=== PATIENT | male | born 1945 | race Two or more races ===

== ENCOUNTER 2024-04-23 11:31 | Inpatient (IN) | payer OTHER ==
[~2024-04-23] VITALS: Ht 180.3 cm; Wt 90.5 kg
--- NOTE | 2024-04-23 11:56 | ED.PDOC ---
HPI Comments 78-year-old male with PMHx HTN brought in by EMS presents with a chief complaint of laceration and dizziness. Patient reported to EMS that he had a "vertigo like" dizziness while in the kitchen at home and had a fall to the ground, hitting his head on the floor. Patient denies losing consciousness. Patient has roughly 1.5 inch laceration to the lateral portion of his left forehead. Patient also has pain and a skin laceration to his left arm. Patient denies any blood thinner usage. Blood sugar was 160. Patient denied any pain meds from EMS. Chief Complaint: Laceration Time Seen by MD: 11:46 Reviewed Notes: Medications, Allergies Allergies: Coded Allergies: NO KNOWN ALLERGIES (Unverified , 04/23/24) Information Source: Patient, Emergency Med Personnel Mode of Arrival: EMS Severity: Moderate Severity of Laceration: Controlled Bleeding Complexity: Intermediate Timing: Minutes Prehospital treatment: Treatment (LACERATION CLEANED AND WRAPPED) Laceration Location: Arm (LEFT ARM), Forehead Mechanism: Fall Last Tetanus: Unknown Laceration Length (cm): 1 Skin Type: Linear Depth of Injury: Skin Past Medical History PAST MEDICAL HISTORY: HTN Surgical History: Denies all surgeries Family History Family History: Reviewed,noncontributory to illness Social History Smoker: Non-Smoker Alcohol: Denies ETOH Use Drugs: Denies Drug Use Lives In: Home Constitutional: denies: chills, diaphoresis, fatigue, fever, malaise, sweats, weakness, others EENTM: denies: blurred vision, double vision, ear bleeding, ear discharge, ear drainage, ear pain, ear ringing, eye pain, eye redness, hearing loss, mouth pain, mouth swelling, nasal discharge, nose bleeding, nose congestion, nose pain, photophobia, tearing, throat pain, throat swelling, voice changes, others Respiratory: denies: cough, hemoptysis, orthopnea, SOB at rest, shortness of breath, SOB with excertion, stridor, wheezing, others Cardiovascular: denies: chest pain, dizzy spells, diaphoresis, Dyspnea on exertion, edema, irregular heart beat, left arm pain, lightheadedness, palpitations, PND, syncope, others Gastrointestinal: denies: abdomen distended, abdominal pain, blood streaked bowels, constipated, diarrhea, dysphagia, difficulty swallowing, hematemesis, melena, nausea, poor appetite, poor fluid intake, rectal bleeding, rectal pain, vomiting, others Genitourinary: denies: burning, dysuria, flank pain, frequency, hematuria, incontinence, penile discharge, penile sore, pain, testicle pain, testicle swelling, urgency, others Neurological: reports: dizziness; denies: fainting, headache, left sided numbness, left sided weakness, numbness, paresthesia, pre-existing deficit, right sided numbness, right sided weakness, seizure, speech problems, tingling, tremors, weakness, others Musculoskeletal: denies: back pain, gout, joint pain, joint swelling, muscle pain, muscle stiffness, neck pain, others Integumetry: reports: laceration (LEFT ARM AND FOREHEAD); denies: bruises, change in color, change in hair/nails, dryness, lesions, lumps, rash, wounds, others Allergic/Immunocompromised: denies: Difficulty Healing, Frequent Infections, Hives, Itching, others Hematologic/Lymphatic: denies: anemia, blood clots, easy bleeding, easy bru ising, swollen glands, others Endocrine: denies: excessive hunger, excessive sweating, excessive thirst, e xcessive urination, flushing, intolerance to cold, intolerance to heat, unexplained weight gain, unexplained weight loss, others Psychiatric: denies: anxiety, bipolar disorder, depression, hopeless, panic disorder, schizophrenia, sleepless, suicidal, others All Other Systems: Reviewed and Negative Physical Exam General Appearance: Moderate Distress, Normal HEENT: Normal ENT Inspection, Pharynx Normal, TMs Normal Neck: Full Range of Motion, Non-Tender, Normal, Normal Inspection Respiratory: Chest Non-Tender, Lungs Clear, No Accessory Muscle Use, No Respiratory Distress, Normal Breath Sounds Cardiovascular: Irregular, No Edema, No JVD, No Murmur, No Gallop, Normal Peripheral Pulses Breast Exam: Deferred Gastrointestinal: No Organomegaly, Non Tender, No Pulsatile Mass, Normal Bowel Sounds, Soft Genitalia: Deferred Pelvic: Deferred Rectal: Deferred Extremities: No calf tenderness, Normal capillary refill, Normal range of motion, Non-tender, No pedal edema, Tender (Left forearm) Musculoskeletal : Apperance: Normal Neurologic: Alert, 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 Was a procedure done?: Yes Sedation Sedation?: No Laceration Repair : Location Forehead Length 3 cm Anesthetic: Lidocaine Laceration Repair Prep: Saline, Betadine Laceration Repair Wound Comple: epidermis/dermis repair Laceration Repair: Number of sutures (Seven), Skin Differential diagnosis Generic Laceration: Fracture, Tendon Injury, Laceration X-Ray, Labs, Meds, VS Vital Signs Date Time Temp Pulse Resp B/P (MAP) Pulse Ox O2 Delivery O2 Flow Rate FiO2 04/23/24 11:54 78 04/23/24 11:41 98.7 91 18 165/94 (117) 96 Current Medications Medications (Trade) Dose Ordered Sig/Vinny Route Start Time Stop Time Status Last Admin Diphtheria/ Tetanus/Acell Pertussis (Boostrix T-Dap) 0.5 ml ONCE ONCE IM 04/23/24 12:00 04/23/24 12:01 DC 04/23/24 12:02 Patient alert. Complaining of left wrist pain. Has a laceration on the forehead. Blood pressure elevated pain EKG reviewed does show atrial fibrillation. History of hypertension diabetes. Difficult to get a good history from the patient. Unknown whether he is taking blood thinner. Was given tetanus. Abdomen is soft nontender. Explained to the patient. Continue cardiac monitoring. Time of 1ST Reevaluation: 12:16 Reevaluation 1ST: Unchanged Patient Education/Counseling: Diagnosis, Treatment, Prognosis Family Education/Counseling: Diagnosis, Treatment, Prognosis Departure 1 Departure Time of Disposition: 12:36 Impression: Primary Impression: Head injury Qualified Codes: S09.90XA - Unspecified injury of head, initial encounter Additional Impressions: Radius fracture Qualified Codes: S52.502A - Unspecified fracture of the lower end of left radius, initial encounter for closed fracture Ulnar fracture Qualified Codes: S52.602A - Unspecified fracture of lower end of left ulna, initial encounter for closed fracture Laceration Disposition: ADMITTED INPATIENT Admit to: Med Surg Condition: Guarded Critical Care Note Critical Care Time?: No Stability Stability form required: No Heart Score Heart Score: Heart Score Response (Comments) Value History Slightly Suspicious 0 EKG Normal 0 Age >65 2 Risk Factors >3 or Hx ASHD 2 Troponin Normal limit 0 Total 4 I personally scribed for ROBERT CERDA MD ([email or web address]) on 04/23/24 at 11:56. Electronically submitted by Thaddeus Corona ([email or web address]). ROBERT CEDRA MD Apr 23, 2024 11:56
[2024-04-23] MEDS: TETANUS-DIPTH-ACEL PERTUSSIS 0.5ML SYR Tdap IM ONE (12:02)
--- NOTE | 2024-04-23 12:48 | DVH ---
CT HEAD WITHOUT CONTRAST INDICATION: fall EXAM DATE: 04/23/2024 12:26 PM COMPARISON: None RADIATION DOSE: CTDIvol: 68 mGy, DLP: 1338 mGy*cm PROCEDURE: CT scans of the head were obtained from the vertex to the skull base. Sagittal and coronal reconstructions were provided. All CT scans at this medical facility are performed using dose modulation techniques as appropriate t o a performed exam including the following: Automated exposure control was utilized; adjustment of th e MA and/or KV according to patient size; and use of iterative reconstruction technique. FINDINGS: There is sulcal and ventricular prominence. The brainshows normal morphology and hartley-whit e matter differentiation, without intracranial hemorrhage, extra-axial fluid collection, mass effect or acute large vessel infarct. The ventricles are normal in size. The basal cisterns are patent. The skull and visible facial bones are intact. The paranasal sinuses, mastoid air cells and middle ear ca vities are well-aerated. There is a left frontal scalp hematoma. IMPRESSION: Left frontal scalp hematoma. No acute intracranial abnormality.
--- NOTE | 2024-04-23 12:49 | DVH ---
AP portable chest HISTORY: fall Comparison: None FINDINGS: Height size slightly enlarged. Atelectasis left base. No infiltrates or effusions. No obvio us fracture IMPRESSION: 1. No acute cardiopulmonary pathology
--- NOTE | 2024-04-23 12:51 | DVH ---
EXAM: XY L FOREARM XRAY HISTORY: fall COMPARISON: None TECHNIQUE: AP and lateral views of the left forearm were performed. FINDINGS/IMPRESSION: Acute comminuted distal radius fracture. Acute ulnar styloid fracture. Vascular calcifications note d.
--- NOTE | 2024-04-23 12:55 | DVH ---
INDICATION: fall COMPARISON: None TECHNIQUE: 3 views of the cervical spine were obtained. FINDINGS: The cervical vertebral alignment is normal. The predental space is normal. Multilevel degenerative changes most severe at C3-C4 through C6-C7 causing moderate neural foraminal spinal canal stenosis No acute fracture, vertebral compression deformity or aggressive osseous lesions. The imaged lung apices are unremarkable. IMPRESSION: No acute fracture. 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
[2024-04-23 14:19] VITALS: PULSE 88; RESP 16; O2SAT 97
[2024-04-23 15:02] LABS: Anion Gap 10 (5-15); Basophils # (auto) 0 10 ^3/uL (0-0.2); Basophils % (auto) 0.2 % (0.0-2.0); Carbon Dioxide 27 mmol/L (20-31); Chloride 102 mmol/L (98-107); Eosinophils # (auto) 0 10 ^3/uL (0-0.8); Eosinophils % (auto) 0.2 % (0.0-7.0); Hematocrit 45.5 % (41.0-53.0); Hemoglobin 15.1 g/dL (13.5-17.5); Lymphocytes # (auto) 1.1 10 ^3/uL (0.4-5.4); Lymphocytes % (auto) 8.1 % (10.0-50.0); Mean Corpuscular Hemoglobin 29.4 pg (28.0-32.0); Mean Corpuscular Hgb Conc. 33.2 g/dL (32.0-36.0); Mean Corpuscular Volume 88.5 fL (80.0-100.0); Monocytes # (auto) 0.7 10 ^3/uL (0-1.3); Neutrophils # (auto) 11.4 10 ^3/uL (1.6-8.6); Neutrophils % (auto) 86.5 % (37.0-80.0); Nucleated Red Blood Cells % 0.2 %; Platelet Count (auto) 274 10^3/uL (140-450); Potassium 4.1 mmol/L (3.5-5.1); Red Blood Cells 5.14 10^6/uL (4.5-5.90); Red Cell Distribution Width 14.5 % (11.8-14.3); Sodium 139 mmol/L (136-145); White Blood Cell 13.1 10^3/uL (4.4-10.8)
[2024-04-23 15:07] LABS: Blood Urea Nitrogen 15 mg/dL (9-23)
[2024-04-23 15:19] LABS: Calcium 10.6 mg/dL (8.7-10.4); Glucose 142 mg/dL (74-106)
[2024-04-23] MEDS ORDERED: DOCUSATE SOD 100 MG CAP PO PRN (16:00)
[2024-04-23] MEDS ORDERED: ACETAMINOPHEN 325 MG TAB PO PRN (16:00)
[2024-04-23] MEDS: SODIUM CHLORIDE 0.9% 1,000 ML IV SCH (16:59)
[2024-04-23] MEDS: HYDROcodone-ACET 5/325MG TAB PO PRN (17:00)
[2024-04-23] MEDS: ONDANSETRON HCL 4 MG/2 ML VIAL IV PRN (17:00)
[2024-04-23] MEDS: cefTRIAXone 1GM/50ML D5W 50 ML IV ONE (17:00)
--- NOTE | 2024-04-23 17:37 | DVH ---
Report Patient Name: JENNIE ALMAZAN Patient : 1945 Patient Gender: Male Patient Class: Emergency Patient Location: [facility] Reading Location: [facility] Signed Date: 04/23/2024 Ord. Doc: ROBERT CERDA DOS: 04/23/2024 Status: Final Procedure: XY L WRIST 2 VIEW XRAY CLINICAL INDICATION: SURGERY TECHNIQUE: 3-view XY L WRIST 2 VIEW XRAY Comparison: None FINDINGS/IMPRESSION: : Comminuted distal radial fracture. Ulnar styloid process fracture Marked vascular calcification Carpal bones intact IMPRESSION: 1. Fractures ACT INSTRUCTOR MTDD
--- NOTE | 2024-04-23 18:32 | ECG ---
[facility] Test Date: 2024-04-23 Test Time: 11:54:09 Pat Name: JENNIE ALMAZAN Department: ER Room: 0247T Gender: M Family Medicine Physician Assistant: BENAJ : 1945 Requested By: ROBERT CERDA Order Number: [id number] [place] MD: Mohsen Veloz Measurements Intervals [place] Rate: 78 P: 0 VA: 0 QRS: -26 QRSD: 111 T: 42 QT: 363 QTc: 414 Interpretive Statements Atrial fibrillation with controlled ventricular response Borderline left axis deviation Baseline wander in lead(s) V1,V4,V5 Electronically Signed On 04-26-2024 21:49:49 PST by Mohsen Veloz Please click the below link to view image of tracing.
--- NOTE | 2024-04-23 19:04 | DVHINCON2 ---
Date of service: Apr 23, 2024 History of Present Illness 78-year-old male presents to emergency room after a fall. Patient was seen by emergency room provider x-ray was completed distal radius fracture was noted orthopedics was consulted. On my interview today patient denies any loss of consciousness other joint pain no hip pain back pain knee pain shoulder pain or other concerns reported. Patient reports left distal radius/left wrist pain. Denies any numbness tingling. Notes some superficial laceration on the dorsal aspect of the hand. No numbness tingling weakness in the affected extremity reported by patient denies any prior injuries to the wrist. Patient reports pain 7 to 8/10 at this time. Allergies: Coded Allergies: NO KNOWN ALLERGIES (Unverified , 04/23/24) Current Medications Current Medications Medications (Trade) Dose Ordered Sig/Vinny Route PRN Reason Start Time Stop Time Status Last Admin Ceftriaxone Sodium 50 ml @ 100 mls/hr DAILY@09 IV 04/24/24 09:00 Losartan Potassium (Cozaar Tablet) 50 mg DAILY PO 04/24/24 10:00 Atorvastatin Calcium (Lipitor) 20 mg HS PO 04/23/24 22:00 Levothyroxine Sodium (Synthroid Tablet) 50 mcg QAM@0600 PO 04/24/24 06:00 Hydralazine HCl (Apresoline Injection) 10 mg Q6HP PRN IV SBP>150 04/23/24 16:00 Sodium Chloride 1,000 ml @ 60 mls/hr [id number] IV 04/23/24 16:00 04/23/24 16:59 Acetaminophen/ Hydrocodone Bitart ([place] 5/325MG Tab) 1 tab Q4HP PRN PO MODERATE PAIN (4-6 PAIN SCALE) 04/23/24 16:00 04/23/24 17:00 Ondansetron HCl (Zofran) 4 mg Q4HP PRN IV NAUSEA / VOMITING 04/23/24 16:00 04/23/24 17:00 Docusate Sodium (Colace Capsule) 100 mg BIDPRN PRN PO FOR CONSTIPATION 04/23/24 16:00 Enoxaparin Sodium (Lovenox) 40 mg DAILY SC 04/24/24 10:00 Acetaminophen (Tylenol Tablet) 650 mg Q6HP PRN PO PAIN SCALE 1-3 OR TEMP>100.4 04/23/24 16:00 Review of Systems Constitutional:No fever chills or malaise neurological: No numbness tingling or weakness musculoskeletal: Left wrist pain swelling decreased range of motion Skin: Superficial laceration on the dorsal aspect of the hand no sign of infection Vital Signs Vital Signs Date Time Temp Pulse Resp B/P (MAP) Pulse Ox O2 Delivery O2 Flow Rate FiO2 04/23/24 18:43 98.2 87 18 118/69 (85) 94 98.2 04/23/24 14:19 Room Air* 0 21 Physical Exam Alert oriented x3, no acute distress Left wrist exam Inspection: Mild swelling superficial laceration over the dorsal aspect of the hand, no sign of erythema active bleed or gross deformity. Palpation: Tenderness over distal radius and ulnar styloid, no crepitus on exam Range of motion: Restricted secondary to pain swelling Neurovascular: Motor intact to gross flexion/extension of all the fingers and wrist Sensation: Grossly intact to light touch in radial medial and ulnar nerve distribution Circulation: Cap refill less than 2 seconds Compartment status: Soft compartment X-ray Left wrist intra-articular mildly comminuted distal radius fracture, ulnar styloid fracture Labs/Diagnostic Data Labs Test 04/23/24 14:19 Range/Units White Blood Count 13.1 H 4.4-10.8 10^3/uL Red Blood Count 5.14 4.5-5.90 10^6/uL Hemoglobin 15.1 13.5-17.5 g/dL Hematocrit 45.5 41.0-53.0 % Mean Corpuscular Volume 88.5 80.0-100.0 fL Mean Corpuscular Hemoglobin 29.4 28.0-32.0 pg Mean Corpuscular Hemoglobin Concent 33.2 32.0-36.0 g/dL Red Cell Distribution Width 14.5 H 11.8-14.3 % Platelet Count 274 140-450 10^3/uL Mean Platelet Volume 7.1 6.9-10.8 fL Neutrophils (%) (Auto) 86.5 H 37.0-80.0 % Lymphocytes (%) (Auto) 8.1 L 10.0-50.0 % Monocytes (%) (Auto) 5.0 0.0-12.0 % Eosinophils (%) (Auto) 0.2 0.0-7.0 % Basophils (%) (Auto) 0.2 0.0-2.0 % Neutrophils # (Auto) 11.4 H 1.6-8.6 10 ^3/uL Lymphocytes # (Auto) 1.1 0.4-5.4 10 ^3/uL Monocytes # (Auto) 0.7 0-1.3 10 ^3/uL Eosinophils # (Auto) 0 0-0.8 10 ^3/uL Basophils # (Auto) 0 0-0.2 10 ^3/uL Nucleated Red Blood Cells 0.2 % Sodium Level 139 136-145 mmol/L Potassium Level 4.1 3.5-5.1 mmol/L Chloride Level 102 98-107 mmol/L Carbon Dioxide Level 27 20-31 mmol/L Anion Gap 10 5-15 Blood Urea Nitrogen 15 9-23 mg/dL Creatinine 1.00 0.700-1.30 mg/dL Glomerular Filtration Rate Calc 78 >90 mL/min BUN/Creatinine Ratio 15.0 10.0-20.0 Serum Glucose 142 H 74-106 mg/dL Calcium Level 10.6 H 8.7-10.4 mg/dL Troponin I High Sensitivity 119 *H </=54 ng/L Assessment Distal radius fracture, left Plan/Recommendation Plan: Immobilization sugar-tong splint for initial stabilization completed in ER today, patient placed in a sling, ER and splint precautions discussed in detail with patient Wound care: Cleaned and dressed the superficial laceration, patient advised on wound care Follow-up Patient to follow up with orthopedic in next 1-2 weeks or earlier if needed for repeat x-ray followed by possible transition to cast if all swelling has resolved and no changes in x-rays noted If the fracture does not maintain acceptable alignment the case will be discussed with a surgeon for further recommendation ER return precautions for any infection lag sign and symptom compartment syndrome worsening of pain swelling splint complication discussed in detail with patient Plan discussed with: Patient, Other (Emergency room provider team care of this patient was also updated on above plan) JESUS FAULKNER [facility] Apr 23, 2024 19:04
--- NOTE | 2024-04-23 19:59 | DVHHP2 ---
History of Present Illness Reason for Visit: Syncope and collapse History of Present Illness The patient is a 78-year-old male with past medical history of hypertension, hypothyroidism, and hyperlipidemia presented to [facility] ED for evaluation of syncopal episode. Patient reports symptoms progressively get worse with dizzy spell, vertigo sensation, had a fall hitting his head on the floor with sustained forehead laceration. Patient was seen and evaluated in the ED, laboratory data shows WBC 13.1, platelets 274, sodium 139, potassium 4.1, BUN 15, creatinine 1.00, GFR 78, glucose 142, blood pressure 175/103 trending down to 126/70, pulse 88, temperature 98.0 F, O2 saturation 97% on room air. Imaging reports revealing acute comminuted distal radius fracture, acute ulna fracture, left frontal scalp hematoma. Patient was started on IV antibiotic regimen Rocephin, please see medication orders section in the computer. On my assessment, patient denied chest pain, no headache, no dizziness, no diaphoresis, no shortness a breath, no nausea, no vomiting, no fever, no chills. Patient was admitted for further evaluation and medical management. Past Medical History HTN, hypothyroidism, HLD Past Surgical History Denies all surgeries Family History Reviewed, noncontributory to the management of this case. Past Social History The patient lives at home, denies smoking, alcohol or illicit drugs abuse. Review of Systems Constitutional: Yes: Weakness; No: Fever, Chills, Sweats, Malaise, Other Eyes: No: Pain, Vision change, Conjunctivae inflammation, Eyelid inflammation, Other, Redness ENT: No: Ear pain, Ear discharge, Nose pain, Nose discharge, Nose congestion, Mouth pain, Mouth swelling, Throat pain, Throat swelling, Other Respiratory: No: Cough, Dry, Shortness of breath, SOB with excertion, Wheezing, Hemoptysis, Pleuritic Pain, Sputum, Wheezing, Other Cardiovascular: Other (Syncope); No: Chest Pain, Palpitations, Orthopnea, Paroxysmal Noc. Dyspnea, Edema, Lt Headedness Gastrointestinal: No: Nausea, Vomiting, Abdominal Pain, Diarrhea, Constipation, Melena, Hematochezia, Other Genitourinary: No Dysuria, No Frequency, No Incontinence, No Hematuria, No Retention, No Other Musculoskeletal: No: other, neck pain, shoulder pain, arm pain, back pain, hand pain, leg pain, foot pain Skin: No: Rash, Lesions, Jaundice, Bruising, Other Neurological: Other (Dizziness); No: Weakness, Numbness, Incoordination, Change in speech, Confusion, Seizures Allergies: Coded Allergies: NO KNOWN ALLERGIES (Unverified , 04/23/24) Medications Current Medications Medications Dose Ordered Sig/Vinny Route Start Time Stop Time Status Last Admin Dose Admin Ceftriaxone Sodium 50 ml @ 100 mls/hr DAILY@09 IV 04/24/24 09:00 Losartan Potassium 50 mg DAILY PO 04/24/24 10:00 Atorvastatin Calcium 20 mg HS PO 04/23/24 22:00 Levothyroxine Sodium 50 mcg QAM@0600 PO 04/24/24 06:00 Hydralazine HCl 10 mg Q6HP PRN IV 04/23/24 16:00 Sodium Chloride 1,000 ml @ 60 mls/hr [id number] IV 04/23/24 16:00 04/23/24 16:59 60 MLS/HR Acetaminophen/ Hydrocodone Bitart 1 tab Q4HP PRN PO 04/23/24 16:00 04/23/24 17:00 1 TAB Ondansetron HCl 4 mg Q4HP PRN IV 04/23/24 16:00 04/23/24 17:00 4 MG Docusate Sodium 100 mg BIDPRN PRN PO 04/23/24 16:00 Enoxaparin Sodium 40 mg DAILY SC 04/24/24 10:00 Acetaminophen 650 mg Q6HP PRN PO 04/23/24 16:00 Exam Vital Signs Vital Signs Date Time Temp Pulse Resp B/P (MAP) Pulse Ox O2 Delivery O2 Flow Rate FiO2 04/23/24 18:43 98.2 87 18 118/69 (85) 94 98.2 04/23/24 14:19 Room Air* 0 21 General Appearance: Alert, Oriented X3, Cooperative, No acute distress HEENT: Atraumatic, PERRLA, EOMI, Mucous membr. moist/pink Respiratory: Clear to auscultation, Normal air movement Cardiovascular: Regular rate, Normal S1, Normal S2, No murmurs Abdominal: Normal bowel sounds, Soft, No tenderness, No hepatospenomegaly, No masses Extremities: No clubbing, No cyanosis, No edema, Normal pulses, No tenderness/swelling Skin: No rashes, No breakdown, No significant lesion Neuro: Normal speech, Normal tone, Sensation intact, Cranial nerves 3-12 NL, Reflexes 2+, Other (Generalized weakness) Psych/Mental Status: Mental status NL, Mood NL Labs/Xrays Labs Test 04/23/24 18:50 04/23/24 14:19 Range/Units White Blood Count 13.1 H 4.4-10.8 10^3/uL Red Blood Count 5.14 4.5-5.90 10^6/uL Hemoglobin 15.1 13.5-17.5 g/dL Hematocrit 45.5 41.0-53.0 % Mean Corpuscular Volume 88.5 80.0-100.0 fL Mean Corpuscular Hemoglobin 29.4 28.0-32.0 pg Mean Corpuscular Hemoglobin Concent 33.2 32.0-36.0 g/dL Red Cell Distribution Width 14.5 H 11.8-14.3 % Platelet Count 274 140-450 10^3/uL Mean Platelet Volume 7.1 6.9-10.8 fL Neutrophils (%) (Auto) 86.5 H 37.0-80.0 % Lymphocytes (%) (Auto) 8.1 L 10.0-50.0 % Monocytes (%) (Auto) 5.0 0.0-12.0 % Eosinophils (%) (Auto) 0.2 0.0-7.0 % Basophils (%) (Auto) 0.2 0.0-2.0 % Neutrophils # (Auto) 11.4 H 1.6-8.6 10 ^3/uL Lymphocytes # (Auto) 1.1 0.4-5.4 10 ^3/uL Monocytes # (Auto) 0.7 0-1.3 10 ^3/uL Eosinophils # (Auto) 0 0-0.8 10 ^3/uL Basophils # (Auto) 0 0-0.2 10 ^3/uL Nucleated Red Blood Cells 0.2 % Sodium Level 139 136-145 mmol/L Potassium Level 4.1 3.5-5.1 mmol/L Chloride Level 102 98-107 mmol/L Carbon Dioxide Level 27 20-31 mmol/L Anion Gap 10 5-15 Blood Urea Nitrogen 15 9-23 mg/dL Creatinine 1.00 0.700-1.30 mg/dL Glomerular Filtration Rate Calc 78 >90 mL/min BUN/Creatinine Ratio 15.0 10.0-20.0 Serum Glucose 142 H 74-106 mg/dL Calcium Level 10.6 H 8.7-10.4 mg/dL PATIENT: JENNIE ALMAZAN ACCT: [id number] UNIT: [id number] : 1945 LOC: ER ROOM / BED: / AGE / SEX: 78 / M ADM STATUS: REG ER SERVICE 1153 ORDERING PHYSICIAN: ROBERT CERDA MD PROCEDURE(s): CERV2 - CERVICAL SPINE 3V REASON: fall ORDER NUMBER(s): [id number], ACCESSION NUMBER(s): [id number] INDICATION: fall COMPARISON: None TECHNIQUE: 3 views of the cervical spine were obtained. FINDINGS: The cervical vertebral alignment is normal. The predental space is normal. Multilevel degenerative changes most severe at C3-C4 through C6-C7 causing moderate neural foraminal spinal canal stenosis No acute fracture, vertebral compression deformity or aggressive osseous lesions. The imaged lung apices are unremarkable. IMPRESSION: No acute fracture. 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 ORDERING PHYSICIAN: ROBERT CERDA MD PROCEDURE(s): LFOR - L FOREARM XRAY REASON: fall ORDER NUMBER(s): [id number], ACCESSION NUMBER(s): [id number] EXAM: XY L FOREARM XRAY HISTORY: fall COMPARISON: None TECHNIQUE: AP and lateral views of the left forearm were performed. FINDINGS/IMPRESSION: Acute comminuted distal radius fracture. Acute ulnar styloid fracture. Vascular calcifications noted. ORDERING PHYSICIAN: ROBERT CERDA MD PROCEDURE(s): HWOCT - HEAD WITHOUT CONTRAST REASON: fall ORDER NUMBER(s): [id number], ACCESSION NUMBER(s): [id number] CT HEAD WITHOUT CONTRAST INDICATION: fall EXAM DATE: 04/23/2024 12:26 PM COMPARISON: None RADIATION DOSE: CTDIvol: 68 mGy, DLP: 1338 mGy*cm PROCEDURE: CT scans of the head were obtained from the vertex to the skull base. Sagittal and coronal reconstructions were provided. All CT scans at this medical facility are performed using dose modulation techniques as appropriate to a performed exam including the following: Automated exposure control was utilized; adjustment of the MA and/or KV according to patient size; and use of iterative reconstruction technique. FINDINGS: There is sulcal and ventricular prominence. The brainshows normal morphology and hartley-white matter differentiation, without intracranial hemorrhage, extra-axial fluid collection, mass effect or acute large vessel infarct. The ventricles are normal in size. The basal cisterns are patent. The skull and visible facial bones are intact. The paranasal sinuses, mastoid air cells and middle ear cavities are well-aerated. There is a left frontal scalp hematoma. IMPRESSION: Left frontal scalp hematoma. No acute intracranial abnormality. ORDERING PHYSICIAN: ROBERT CERDA MD PROCEDURE(s): CXRP - CHEST PORTABLE REASON: fall ORDER NUMBER(s): [id number], ACCESSION NUMBER(s): [id number] AP portable chest HISTORY: fall Comparison: None FINDINGS: Height size slightly enlarged. Atelectasis left base. No infiltrates or effusions. No obvious fracture IMPRESSION: 1. No acute cardiopulmonary pathology ORDERING PHYSICIAN: ROBERT CERDA MD PROCEDURE(s): LWRI2 - L WRIST 2 VIEW XRAY REASON: SURGERY ORDER NUMBER(s): [id number], ACCESSION NUMBER(s): [id number] Report Patient Name: JENNIE ALMAZAN Patient : 1945 Patient Gender: Male Patient Class: Emergency Patient Location: [facility] Reading Location: [facility] Signed Date: 04/23/2024 Ord. Doc: ROBERT CERDA DOS: 04/23/2024 Status: Final Procedure: XY L WRIST 2 VIEW XRAY CLINICAL INDICATION: SURGERY TECHNIQUE: 3-view XY L WRIST 2 VIEW XRAY Comparison: None FINDINGS/IMPRESSION: : Comminuted distal radial fracture. Ulnar styloid process fracture Marked vascular calcification Carpal bones intact IMPRESSION: 1. Fractures Assessment/Plan Assessment/Plan Syncope and collapse Fall with injury Unspecified injury of head, initial encounter Ulnar fracture Radius fracture Unspecified fracture of the lower end of left radius, initial encounter for closed fracture Forehead laceration Unspecified fracture of lower end of left ulna, initial encounter for closed fracture Leukocytosis, unspecified Plan 1. Admit to telemetry unit 2. Breathing treatment 3. Pain control management 4. IV antibiotic management 5. Management of fluids and electrolytes 6. Consultation for Cardiology/hospitalist/wound care 7. Diagnostic test head CT 8. DVT prophylaxis-on Lovenox 9. Repeat labs CBC, CMP in a.m. 10. Home medication reviewed and reconciled 11. Continue with current medical management 12. Treatment plan discussed with patient and RN. Patient verbalized understanding. Plan discussed with: Patient, Other (RN) My Orders Orders - ANA RAMOS DNP Procedure Category Date Status Time Ceftriaxone 1gm/50ml PHA 04/24/24 In Process D5w (Rocephin) 09:00 Losartan Tablet PHA 04/24/24 In Process (Cozaar Tablet) 10:00 Atorvastatin (Lipitor) PHA 04/23/24 In Process 22:00 Levothyroxine Tablet PHA 04/24/24 In Process (Synthroid Tablet) 06:00 Hydralazine Injection PHA 04/23/24 In Process (Apresoline Inject 16:00 Troponin-I Hs LAB 04/23/24 In Process 18:51 Troponin-I Hs LAB 04/23/24 Logged 22:50 Allergies ROSAURA 04/23/24 In Process 15:51 Code Status CODE 04/23/24 Transmitted 15:51 Sodium Chloride 0.9% PHA 04/23/24 In Process 16:00 Oxygen Per Hour RT 04/23/24 Transmitted 15:51 Hydrocodone-Acet PHA 04/23/24 In Process 5/325mg Tab ([place] 16:00 Ondansetron Hcl PHA 04/23/24 In Process (Zofran) 16:00 Docusate Sodium PHA 04/23/24 In Process Capsule (Colace 16:00 Enoxaparin Sodium PHA 04/24/24 In Process (Lovenox) 10:00 Fall Risk Precautions ROSA[facility]A 04/23/[address] 15:51 Complete Blood Count LAB 04/24/24 Verified 04:00 Comprehensive LAB 04/24/24 Verified Metabolic Panel 04:00 Cardiac DIET 04/23/24 Transmitted Diet-2gna,Lofat,Lochol Dinner Condition: Serious [facility]A 04/23/24 In Process 15:51 Acetaminophen Tablet PHA 04/23/24 In Process (Tylenol Tablet) 16:00 Sequential [facility]A 04/23/24 In Process Compression Device * Orthopedic Consult CONS 04/23/24 Transmitted 15:57 Admit ADMIT 04/23/24 Transmitted 19:[address] [facility] 04/23/24 Transmitted Sublingual (Ntrostat 20:00 Morphine Sulfate PHA 04/23/24 Transmitted Injection 20:00 Notify Of Changes [facility] 04/23/24 Transmitted From Base 19:57 [employer]ne[employer] For [facility] 04/23/24 Transmitted 24 Hours 19:57 Emergency Dysrhythmia [facility] 04/23/24 Transmitted Protocol 19:57 Rhythm Strips Once [facility] 04/23/24 Transmitted Every Shift 19:57 Oxygen By Nasal RT 04/23/24 Transmitted Cannula 19:57 * Cardiology Consult CONS 04/23/24 Transmitted 19:57 Problem List: (1) Syncope and collapse (2) Fall with injury (3) Ulnar fracture (4) Unspecified injury of head, initial encounter (5) Radius fracture (6) Unspecified fracture of the lower end of left radius, initial encounter for closed fracture (7) Forehead laceration (8) Leukocytosis, unspecified (9) Unspecified fracture of lower end of left ulna, initial encounter for closed fracture Date of Service: Apr 23, 2024 Billing Provider: ANA RAMOS DNP Common Visit Codes: 32379-[id number] INP/OBS CARE (HIGH) ANA RAMOS DNP Apr 23, 2024 19:59
[2024-04-23] MEDS ORDERED: NITROGLYCERIN 0.4 MG SL TAB SL PRN (20:00)
[2024-04-23] MEDS ORDERED: MORPHINE SULFATE INJ 2 MG/ml SYRG IV PRN (20:00)
[2024-04-23] MEDS: ATORVASTATIN 20 MG TAB PO SCH (23:37)
[2024-04-24] VITALS: PULSE 79; RESP 16; O2SAT 99
[2024-04-24] MEDS: LEVOTHYROXINE SODIUM 50 MCG TAB PO SCH (05:53)
[2024-04-24 06:48] LABS: Basophils # (auto) 0 10 ^3/uL (0-0.2); Basophils % (auto) 0.1 % (0.0-2.0); Eosinophils # (auto) 0 10 ^3/uL (0-0.8); Eosinophils % (auto) 0.1 % (0.0-7.0); Hematocrit 38.9 % (41.0-53.0); Lymphocytes # (auto) 1.9 10 ^3/uL (0.4-5.4); Lymphocytes % (auto) 15.4 % (10.0-50.0); Mean Corpuscular Hemoglobin 29.9 pg (28.0-32.0); Mean Corpuscular Hgb Conc. 33.4 g/dL (32.0-36.0); Mean Corpuscular Volume 89.4 fL (80.0-100.0); Monocytes # (auto) 1.4 10 ^3/uL (0-1.3); Monocytes % (auto) 11.6 % (0.0-12.0); Neutrophils % (auto) 72.8 % (37.0-80.0); Platelet Count (auto) 207 10^3/uL (140-450); Red Blood Cells 4.35 10^6/uL (4.5-5.90); Red Cell Distribution Width 14.4 % (11.8-14.3); White Blood Cell 12.3 10^3/uL (4.4-10.8)
[2024-04-24 07:04] LABS: Alanine Aminotransferase 36 U/L (7-40); Albumin 4.2 g/dL (3.2-4.8); Anion Gap 10 (5-15); Aspartate Aminotransferase 31 U/L (13-40); BUN/Creatinine Ratio 20.5 (10.0-20.0); Calcium 9.7 mg/dL (8.7-10.4); Carbon Dioxide 24 mmol/L (20-31); Chloride 105 mmol/L (98-107); Potassium 4.3 mmol/L (3.5-5.1); Sodium 139 mmol/L (136-145)
[2024-04-24 07:05] LABS: Bilirubin, Total 0.7 mg/dL (0.2-1.0); Total Protein 6.7 g/dL (5.7-8.2)
[2024-04-24 07:09] LABS: Alkaline Phosphatase 127 U/L (46-116); Blood Urea Nitrogen 23 mg/dL (9-23); Glucose 113 mg/dL (74-106)
[2024-04-24 07:54] VITALS: PULSE 77; RESP 18; O2SAT 96
[2024-04-24 09:17] LABS: Folate (Folic Acid) 23.31 ng/mL (>5.38); Free T4 (Free Thyroxine) 0.95 ng/dL (0.89-1.76)
--- NOTE | 2024-04-24 09:25 | DVHCONRES ---
Date Seen: Apr 24, 2024 Resident Creating Document: JIMMIE BRICENO RESIDENT Referring Physician CHANEL Tucker Reason for Consultation Syncope History of Present Illness This is a 78-year-old male who comes into the ED with chief complain of dizziness and fall. He has a past medical history relevant for hypertension, hyperlipidemia, hypothyroidism. Past surgical history of cholecystectomy. Denies any smoking, alcohol drinking or any illicit drug use. Patient stated that yesterday after mowing the lawn, he went into his house on was trying to grab an orange from the top of a shelf, while looking up he felt like the room was spinning, immediately he lost balance, tried to sit down however he fell and landed on his head, he tried reducing the impact by putting his hands. Patient stated that he did not lose consciousness, his fall was witnessed by his spouse, denies any feeling of chest pain, palpitations, shortness of breath, flushing, warmness, headaches, while this event occurred. He also stated that he has been experiencing this DC spells for the last four months, he was already seen by his PCP and he provided some medicine however it did not help. Patient stated that after the fall he started having significant pain on his arms on forehead. In the ED patient had to be suture in the forehead, x-rays revealed distal radius fracture, acute ulnar fracture, left frontal scalp hematoma, otherwise head CT was unremarkable for any intracranial bleeding. EKG and telemetry revealed atrial fibrillation, currently at a controlled rate. Chest x-ray was unremarkable. Vital signs show an elevated BP at 165/94, currently [place] [address], troponins were elevated at 119-77-105. Patient has received IV fluids, antibiotics, pain medications. We are consulted due to possible syncope, patient was admitted for further investigation and management. Allergies: Coded Allergies: NO KNOWN ALLERGIES (Unverified , 04/23/24) Current Medications Current Medications Medications (Trade) Dose Ordered Sig/Vinny Route PRN Reason Start Time Stop Time Status Last Admin Ceftriaxone Sodium 50 ml @ 100 mls/hr DAILY@09 IV 04/24/24 09:00 Losartan Potassium (Cozaar Tablet) 50 mg DAILY PO 04/24/24 10:00 Atorvastatin Calcium (Lipitor) 20 mg HS PO 04/23/24 22:00 04/23/24 23:37 Levothyroxine Sodium (Synthroid Tablet) 50 mcg QAM@0600 PO 04/24/24 06:00 04/24/24 05:53 Hydralazine HCl (Apresoline Injection) 10 mg Q6HP PRN IV SBP>150 04/23/24 16:00 Sodium Chloride 1,000 ml @ 60 mls/hr [id number] IV 04/23/24 16:00 04/24/24 08:45 Acetaminophen/ Hydrocodone Bitart ([place] 5/325MG Tab) 1 tab Q4HP PRN PO MODERATE PAIN (4-6 PAIN SCALE) 04/23/24 16:00 04/23/24 23:29 Ondansetron HCl (Zofran) 4 mg Q4HP PRN IV NAUSEA / VOMITING 04/23/24 16:00 04/23/24 17:00 Docusate Sodium (Colace Capsule) 100 mg BIDPRN PRN PO FOR CONSTIPATION 04/23/24 16:00 Enoxaparin Sodium (Lovenox) 40 mg DAILY SC 04/24/24 10:00 Acetaminophen (Tylenol Tablet) 650 mg Q6HP PRN PO PAIN SCALE 1-3 OR TEMP>100.4 04/23/24 16:00 Nitroglycerin (Ntrostat Sublingual) 0.4 mg Q5MINP PRN SL FOR CHEST PAIN 04/23/24 20:00 Morphine Sulfate 2 mg Q30M PRN IV FOR CHEST PAIN 04/23/24 20:00 Review of Systems Constitutional: Patient denies fevers, chills, sweats and weight changes. Eyes: Patient denies any visual symptoms. Ears, Nose, and Throat: No difficulties with hearing. No symptoms of rhinitis or sore throat. Cardiovascular: Patient denies chest pains, palpitations, orthopnea and paroxysmal nocturnal dyspnea. Respiratory: No dyspnea on exertion, no wheezing or cough. GI: No nausea, vomiting, diarrhea, constipation, abdominal pain, hematochezia or melena. : No urinary hesitancy or dribbling. No nocturia or urinary frequency. No abnormal urethral discharge. Musculoskeletal: Pain on arms Neurologic: No chronic headaches, no seizures. Patient denies numbness, tingling or weakness. States having dizziness Psychiatric: Patient denies problems with mood disturbance. No problems with anxiety. Endocrine: No excessive urination or excessive thirst. Dermatologic: Patient denies any rashes or skin changes. Vital Signs Vital Signs Date Time Temp Pulse Resp B/P (MAP) Pulse Ox O2 Delivery O2 Flow Rate FiO2 04/24/24 08:00 71 04/24/24 07:54 18 96 Room Air* 0 21 04/24/24 06:00 110/68 (82) 04/23/24 18:43 98.2 98.2 Physical Exam General: Awake, alert, comfortable appearing, in no acute distress. HEENT: Head is normocephalic, left frontal hematoma. Pupils are equal, round, and reactive to light. Extraocular muscles are intact. No nasal discharge. Signs of laceration on the face. Intraoral exam shows moist mucous membranes with no tonsillar enlargement or exudate. Neck: Supple with no cervical lymphadenopathy. Heart: Irregularly irregular, systolic murmur on aortic foci Lungs: Equal breath sounds bilaterally with no wheezing, rales, or rhonchi. There is no chest wall tenderness or instability. Abdomen: No external sign of injury. Bowel sounds are present. Abdomen is soft, nontender. No rebound, no guarding, no rigidity. There are no palpable masses. There is no flank pain on exam. Extremities: Strong peripheral pulses. There is no clubbing, no cyanosis, and no edema. Skin: No rash. Labs/Diagnostic Data Labs Test 04/24/24 05:54 Range/Units White Blood Count 12.3 H 4.4-10.8 10^3/uL Red Blood Count 4.35 L 4.5-5.90 10^6/uL Hemoglobin 13.0 L 13.5-17.5 g/dL Hematocrit 38.9 #L 41.0-53.0 % Mean Corpuscular Volume 89.4 80.0-100.0 fL Mean Corpuscular Hemoglobin 29.9 28.0-32.0 pg Mean Corpuscular Hemoglobin Concent 33.4 32.0-36.0 g/dL Red Cell Distribution Width 14.4 H 11.8-14.3 % Platelet Count 207 140-450 10^3/uL Mean Platelet Volume 7.2 6.9-10.8 fL Neutrophils (%) (Auto) 72.8 37.0-80.0 % Lymphocytes (%) (Auto) 15.4 10.0-50.0 % Monocytes (%) (Auto) 11.6 0.0-12.0 % Eosinophils (%) (Auto) 0.1 0.0-7.0 % Basophils (%) (Auto) 0.1 0.0-2.0 % Neutrophils # (Auto) 9.0 H 1.6-8.6 10 ^3/uL Lymphocytes # (Auto) 1.9 0.4-5.4 10 ^3/uL Monocytes # (Auto) 1.4 H 0-1.3 10 ^3/uL Eosinophils # (Auto) 0 0-0.8 10 ^3/uL Basophils # (Auto) 0 0-0.2 10 ^3/uL Nucleated Red Blood Cells 0.0 % Sodium Level 139 136-145 mmol/L Potassium Level 4.3 3.5-5.1 mmol/L Chloride Level 105 98-107 mmol/L Carbon Dioxide Level 24 20-31 mmol/L Anion Gap 10 5-15 Blood Urea Nitrogen 23 9-23 mg/dL Creatinine 1.12 0.700-1.30 mg/dL Glomerular Filtration Rate Calc 68 >90 mL/min BUN/Creatinine Ratio 20.5 H 10.0-20.0 Serum Glucose 113 H 74-106 mg/dL Calcium Level 9.7 8.7-10.4 mg/dL Total Bilirubin 0.7 0.2-1.0 mg/dL Aspartate Amino Transferase (AST) 31 13-40 U/L Alanine Aminotransferase (ALT) 36 7-40 U/L Alkaline Phosphatase 127 H 46-116 U/L B-Type Natriuretic Peptide 323.49 0-100 pg/mL Total Protein 6.7 5.7-8.2 g/dL Albumin 4.2 3.2-4.8 g/dL Assessment Pre-syncope, rule out cardiogenic, neurogenic origin, likely peripheral vertigo Atrial fibrillation, controlled rate Severe aortic stenosis NSTEMI likely type 2 due to above Carotid artery stenosis, moderate Hypertension Hypothyroidism Hyperlipidemia Radial fracture Ulnar fracture Left frontal hematoma Plan/Recommendation Ordered B12, folate, TSH, T4, orthostatic vitals, magnesium, lipid panel, repeat troponins, BNP, A1c, UA, UDS Ordered Carotid Doppler, echocardiogram Reviewed EKG, no ST-T wave changes, troponins are trending down [id number]: 3 points HAS-BLED: 1 point Begin anticoagulation with therapeutic Lovenox Continue antihypertensive, antilipidemic, levothyroxine We will continue monitoring patient's clinical status, possible left heart catheterization to be performed on Counseled on lifestyle modifications, medical compliance Case was discussed with Dr. Valentin pt seen with cv team agree with plan formulated together pt has severe , new onset afib ,and moderate carotid disease consider [facility] dione this admit rate control family agrees to plan Plan discussed with: Patient JIMMIE BRICENO RESIDENT Apr 24, 2024 09:25 YOUNG VALENTIN MD Apr 24, 2024 15:30
[2024-04-24 09:27] LABS: Magnesium 1.8 mg/dL (1.6-2.6)
[2024-04-24 09:36] LABS: INR 1.17 (0.9-1.15); Partial Thromboplastin Time 30.2 SEC (24.5-34.5); Prothrombin Time 12.2 sec (9.3-11.8)
[2024-04-24] MEDS ORDERED: ENOXAPARIN SOD 40 MG/0.4 ML SYRINGE SC SCH (10:00)
--- NOTE | 2024-04-24 10:06 | DVH ---
Carotid Duplex Date: 04/24/2024 08:57 AM Clinical History: syncope Comparison: None Technique: Duplex Doppler evaluation of the extracranial carotid and vertebral arteries including color Doppler and spectral/pulsed waveform analysis was performed. Findings: Velocities and ratios within normal limits. Left vertebral artery not seen. IMPRESSION: 50-69% stenosis bilaterally. Reference: Radiology 2003; 229:340-346
[2024-04-24] MEDS: cefTRIAXone 1GM/50ML D5W 50 ML IV SCH (11:12)
[2024-04-24] MEDS: ENOXAPARIN SOD 100 MG/1 ML SYRINGE SC SCH (11:12)
[2024-04-24] MEDS: LOSARTAN POTASSIUM 50 MG TAB PO SCH (11:13)
[2024-04-24] MEDS: MAGNESIUM SULFATE 1GM/100ML 100 ML IV ONE (12:04)
--- NOTE | 2024-04-24 12:50 | ECG ---
[facility] [place]: [place]24-04-24 Test Time: 04:42:43 Pat Name: JENNIE ALMAZAN Department: ED Room: 0247T Gender: M Management And Budget Analyst: ROLANDO : 1945 Requested By: ROBERT CERDA Order Number: [id number] Reading MD: Mohsen Veloz Measurements Intervals [place] Rate: 75 P: 0 [place]: 0 QRS: 114 QRSD: 99 T: 27 QT: 395 QTc: 442 Interpretive Statements Atrial fibrillation S1,S2,S3 pattern Borderline ST elevation, lateral leads Electronically Signed On 04-26-2024 22:04:52 PST by Mohsen Veloz Please click the below link to view image of tracing.
--- NOTE | 2024-04-24 15:01 | DVHPN2 ---
Subjective 78-year-old male with a history of hypertension, hypothyroidism, hyperlipidemia comes with chief complaint of syncope and dizziness Apparently he was working on his lawn outside the house then went inside because he became dizzy when he was looking up and then he fell landing on his head and left arm resulting in a cut to his scalp and fracture of his left distal radius and ulna He has been having these symptoms actually for about 5 or 6 months usually when he looks up or looks down Changes from previous H/P or p: Changes Eyes: No Pain, No Vision change, No Conjunctivae inflammation, No Eyelid inflammation, No Other, No Redness ENT: No Ear pain, No Ear discharge, No Nose pain, No Nose discharge, No Nose congestion, No Mouth pain, No Mouth swelling, No Throat pain, No Throat swelling, No Other Cardiovascular: No Chest Pain, No Palpitations, No Orthopnea, No Paroxysmal Noc. Dyspnea, No Edema, No Lt Headedness; Other (Syncope) Respiratory: No Cough, No Dry, No Shortness of breath, No SOB with excertion, No Wheezing, No Hemoptysis, No Pleuritic Pain, No Sputum, No Other Gastrointestinal: No Nausea, No Vomiting, No Abdominal Pain, No Diarrhea, No Constipation, No Melena, No Hematochezia, No Other Genitourinary: No Dysuria, No Frequency, No Incontinence, No Hematuria, No Retention, No Other Musculoskeletal: No other, No neck pain, No shoulder pain, No arm pain, No back pain, No hand pain, No leg pain, No foot pain Skin: No Rash, No Lesions, No Jaundice, No Bruising, No Other Objective Vitals Vital Signs Date Time Temp Pulse Resp B/P (MAP) Pulse Ox O2 Delivery O2 Flow Rate FiO2 04/24/24 14:00 75 20 135/76 (95) 04/24/24 10:00 92 04/24/24 08:00 97.6 97.6 04/24/24 07:54 Room Air* 0 21 Intake/Output Intake and Output 04/24/24 07:00 Intake Total 590 ml Balance 590 ml Intake IV Total 590 ml General Appearance: Alert, Oriented X3, Cooperative Lungs: Clear to auscultation, Normal air movement Cardiovascular: Other (Irregularity irregular, systolic murmur at the base) Abdomen: Normal bowel sounds, Soft, No tenderness Extremities: No edema Medications Current Medications Medications Dose Ordered Sig/Vinny Route Start Time Stop Time Status Last Admin Dose Admin Ceftriaxone Sodium 50 ml @ 100 mls/hr DAILY@09 IV 04/24/24 09:00 04/24/24 11:12 100 MLS/HR Losartan Potassium 50 mg DAILY PO 04/24/24 10:00 04/24/24 11:13 50 MG Atorvastatin Calcium 20 mg HS PO 04/23/24 22:00 04/23/24 23:37 20 MG Levothyroxine Sodium 50 mcg QAM@0600 PO 04/24/24 06:00 04/24/24 05:53 50 MCG Hydralazine HCl 10 mg Q6HP PRN IV 04/23/24 16:00 Acetaminophen/ Hydrocodone Bitart 1 tab Q4HP PRN PO 04/23/24 16:00 04/23/24 23:29 1 TAB Ondansetron HCl 4 mg Q4HP PRN IV 04/23/24 16:00 04/23/24 17:00 4 MG Docusate Sodium 100 mg BIDPRN PRN PO 04/23/24 16:00 Acetaminophen 650 mg Q6HP PRN PO 04/23/24 16:00 Nitroglycerin 0.4 mg Q5MINP PRN SL 04/23/24 20:00 Morphine Sulfate 2 mg Q30M PRN IV 04/23/24 20:00 Enoxaparin Sodium 70 mg Q12HR SC 04/24/24 10:00 04/24/24 11:12 70 MG Laboratory Results Laboratory Tests 04/24/24 05:54 Chemistry Test 04/24/24 05:54 Albumin 4.2 g/dL (3.2-4.8) Calcium Level 9.7 mg/dL (8.7-10.4) Magnesium Level 1.8 mg/dL (1.6-2.6) Total Protein 6.7 g/dL (5.7-8.2) Coagulation Test 04/24/24 05:44 Prothrombin Time 12.2 sec (9.3-11.8) H Prothrombin Time INR 1.17 (0.9-1.15) H Activated Partial Thromboplast Time 30.2 SEC (24.5-34.5) Lipid panel Test 04/24/24 05:54 Cholesterol Level Pending HDL Cholesterol Pending Triglycerides Level Pending Cardiac Markers Test 04/24/24 05:54 B-Type Natriuretic Peptide 323.49 pg/mL (0-100) LFT Test 04/24/24 05:54 Alanine Aminotransferase (ALT) 36 U/L (7-40) Alkaline Phosphatase 127 U/L (46-116) H Aspartate Amino Transferase (AST) 31 U/L (13-40) Total Bilirubin 0.7 mg/dL (0.2-1.0) HgA1c, TSH Test 04/24/24 05:54 Hemoglobin A1c 5.6 % A1C (<5.7) Thyroid Stimulating Hormone (TSH) 1.97 uIU/mL (0.55-4.78) Assessment/Plan Assessment/Plan Presyncope Dizziness Systolic murmur Atrial fibrillation with controlled rate, new onset Bilateral carotid stenosis Hypertension Mixed hyperlipidemia Hypothyroidism Elevated troponin, NSTEMI type 2 Left distal ulnar and radial fracture Left frontal hematoma due to the fall Plan CT head was negative Carotid Doppler showed bilateral stenosis 50-69% The patient has a systolic murmur He is in atrial fibrillation Echocardiogram is pending Lovenox subcutaneously Cardiology consult Lipitor Full code Discussed with the family at the bedside Orthopedic consult was obtained, recommends outpatient follow up Plan discussed with: Patient Date of Service: Apr 24, 2024 Billing Provider: RAÚL SEO MD Common Visit Codes: NOT BILLABLE RAÚL SEO MD Apr 24, 2024 15:01
--- NOTE | 2024-04-24 15:18 | DVHSR ---
APPROVED REPORT EXAM: Two-dimensional and M-mode echocardiogram with Doppler and color Doppler. Blood Pressure: 110/68 mmHg INDICATION NSTEMI RISK FACTORS Height: 5'10, Weight: 154 DIMENSIONS LVDd3.8 (3.8-5.7cm)LA (2D)3.7 (1.9-4.0cm)Aortic Root3.3 (2.0-3.7cm) LVDs2.6 (2.5-4.0cm)LA (MM) (1.9-4.0cm)Aortic Cusp Exc0.8 (1.5-2.0cm) EF (%) 58.0 (55-70%)Rt. Atrium4.0 (1.9-4.0cm)Asc. Aorta3.8 cm IVSd1.0 (0.7-1.1cm)RV (D)3.6 (1.8-2.4cm) PWd0.9 (0.7-1.1cm) Mitral Valve MitralMitral Stenosis E wave0.90m/sMV Mean GR.mmHg A wave0.49m/sMV Peak GR.mmHg E/A ratio1.82D MVAcm2 DECEL [id number] 1/2 Timems Aortic Valve Aortic ValveAortic Stenosis V11.00m/Valerie Mean GR.43mmHg V24.06m/Valerie Peak GR.66mmHg LVOT Diameter2.6 (1.8-2.4cm)Doppler AVA1.31cm2 Pulmonic Valve V21.15m/s Tricuspid Valve TR Velocity2.41m/s [id number] Conclusion lvef 50-55% by visual estimate normal rv function left atrium enlarged sever aortic stenosis, mean gradient of 42 mmhg, calcific valve, no severe regurg noted
[2024-04-24 21:00] VITALS: BP 131/76; PULSE 75; RESP 18; TEMP 98.5; O2SAT 95
[2024-04-24 21:36] VITALS: BP 148/76; PULSE 83; RESP 20; TEMP 98; O2SAT 92
[2024-04-24 22:06] VITALS: PULSE 78
[2024-04-24 23:44] LABS: Urine Bacteria FEW /hpf (None Seen); Urine Blood TRACE /uL (Negative); Urine Clarity Clear (Clear); Urine Color Light-Yellow (Yellow); Urine Protein, UAD Negative (Negative); Urine Specific Gravity 1.024 (1.001-1.035); Urine Squamous Epithelial Cell FEW /hpf (<5); Urine Urobilinogen Normal (Negative); Urine WBC 1 /HPF (0-3); Urine pH 5.5 (5.0-9.0)
[2024-04-24 23:53] LABS: Opiate Scree,Urine Pos (NEGATIVE)
[2024-04-24 23:55] LABS: Amphetamine Screen, Urine Neg (NEGATIVE); Barbiturate Scree,Urine Neg (NEGATIVE); Benzodiazephine Screen, Urine Neg (NEGATIVE); Cannabinoid Screen, Urine Neg (NEGATIVE); Cocaine Screen, Urine Neg (NEGATIVE); Phencyclidine Screen, Urine Neg (NEGATIVE)
[2024-04-25] MEDS ORDERED: ATOR20TA50 (00:35)
[2024-04-25] MEDS ORDERED: LEVO50TA7 (00:35)
[2024-04-25] MEDS ORDERED: LOSA-535 (00:35)
[2024-04-25 01:00] VITALS: BP 146/89; PULSE 80; RESP 18; TEMP 98.3; O2SAT 94
[2024-04-25 05:00] VITALS: BP 137/88; PULSE 78; RESP 18; TEMP 98; O2SAT 94
[2024-04-25 08:00] VITALS: PULSE 78
[2024-04-25 09:10] VITALS: BP 155/98; PULSE 89; RESP 17; TEMP 97.8; O2SAT 96
--- NOTE | 2024-04-25 11:52 | DVHPN2 ---
Subjective No new complaints Changes from previous H/P or p: Changes Eyes: No Pain, No Vision change, No Conjunctivae inflammation, No Eyelid inflammation, No Other, No Redness ENT: No Ear pain, No Ear discharge, No Nose pain, No Nose discharge, No Nose congestion, No Mouth pain, No Mouth swelling, No Throat pain, No Throat swelling, No Other Cardiovascular: No Chest Pain, No Palpitations, No Orthopnea, No Paroxysmal Noc. Dyspnea, No Edema, No Lt Headedness; Other (Syncope) Respiratory: No Cough, No Dry, No Shortness of breath, No SOB with excertion, No Wheezing, No Hemoptysis, No Pleuritic Pain, No Sputum, No Other Gastrointestinal: No Nausea, No Vomiting, No Abdominal Pain, No Diarrhea, No Constipation, No Melena, No Hematochezia, No Other Genitourinary: No Dysuria, No Frequency, No Incontinence, No Hematuria, No Retention, No Other Musculoskeletal: No other, No neck pain, No shoulder pain, No arm pain, No back pain, No hand pain, No leg pain, No foot pain Skin: No Rash, No Lesions, No Jaundice, No Bruising, No Other Objective Vitals Vital Signs Date Time Temp Pulse Resp B/P (MAP) Pulse Ox O2 Delivery O2 Flow Rate FiO2 04/25/24 09:44 155/98 04/25/24 09:10 97.8 89 17 96 97.8 04/25/24 07:53 Room Air* 0 21 Intake/Output Intake and Output 04/25/24 07:00 Intake Total 510 ml Output Total 150 ml Balance 360 ml Intake Oral 300 ml IV Total 210 ml Output Urine Total 150 ml # Voids 2 General Appearance: Alert, Oriented X3, Cooperative Lungs: Clear to auscultation, Normal air movement Cardiovascular: Other (Irregularity irregular, systolic murmur at the base) Abdomen: Normal bowel sounds, Soft, No tenderness Extremities: No edema Medications Current Medications Medications Dose Ordered Sig/Vinny Route Start Time Stop Time Status Last Admin Dose Admin Losartan Potassium 50 mg DAILY PO 04/24/24 10:00 04/25/24 09:44 50 MG Atorvastatin Calcium 20 mg HS PO 04/23/24 22:00 04/24/24 21:32 20 MG Levothyroxine Sodium 50 mcg QAM@0600 PO 04/24/24 06:00 04/25/24 05:56 50 MCG Hydralazine HCl 10 mg Q6HP PRN IV 04/23/24 16:00 Acetaminophen/ Hydrocodone Bitart 1 tab Q4HP PRN PO 04/23/24 16:00 04/24/24 20:41 1 TAB Ondansetron HCl 4 mg Q4HP PRN IV 04/23/24 16:00 04/23/24 17:00 4 MG Docusate Sodium 100 mg BIDPRN PRN PO 04/23/24 16:00 Acetaminophen 650 mg Q6HP PRN PO 04/23/24 16:00 Nitroglycerin 0.4 mg Q5MINP PRN SL 04/23/24 20:00 Morphine Sulfate 2 mg Q30M PRN IV 04/23/24 20:00 Enoxaparin Sodium 70 mg Q12HR SC 04/24/24 10:00 04/25/24 09:43 70 MG Metoprolol Tartrate 25 mg BID PO 04/25/24 22:00 Laboratory Results Laboratory Tests 04/24/24 05:54 Urinalysis Test 04/24/24 23:25 Urine Color Light-yellow (Yellow) Urine Clarity Clear (Clear) Urine pH 5.5 (5.0-9.0) Urine Specific [place] 1.024 (1.001-1.035) Urine Protein Negative (Negative) Urine Ketones Negative (Negative) Urine Blood Trace /uL (Negative) H Urine Nitrite Negative (Negative) Urine Bilirubin Negative (Negative) Urine Urobilinogen Normal mg/dL (Negative) Urine Leukocyte Esterase Negative /uL (Negative) Urine RBC 1 /hpf (0 - 3) Urine Microscopic WBC 1 /HPF (0-3) Urine Squamous Epithelial Cells Few /hpf (<5) Urine Bacteria Few /hpf (None Seen) H Urine Glucose Normal mg/dL (Normal) Assessment/Plan Assessment/Plan Presyncope Dizziness Systolic murmur Atrial fibrillation with controlled rate, new onset Bilateral carotid stenosis Hypertension Mixed hyperlipidemia Hypothyroidism Elevated troponin, NSTEMI type 2 Left distal ulnar and radial fracture Left frontal hematoma due to the fall Plan CT head was negative Carotid Doppler showed bilateral stenosis 50-69% The patient has a systolic murmur He is in atrial fibrillation Echocardiogram is pending [facility] Cardiology consult Lipitor Full code Discussed with the family at the bedside Orthopedic consult was obtained, recommends outpatient follow up 04/25/2024: Echocardiogram shows severe aortic stenosis The patient has bilateral carotid stenosis Ejection fraction is 50% on the echo Cardiology recommended heart catheterization to be done tomorrow possibly Atrial fibrillation Hypertension Hypothyroidism Mixed hyperlipidemia Left arm distal radial and ulnar fracture Scalp hematoma The rest of the management will depend on the hospital course Plan discussed with: Patient, Spouse My Orders Orders - RAÚL SEO MD Procedure Category Date Status Time * Recycl[employer] Or [employer] CONS 04/25/24 Transmitted Consult Date of Service: Apr 25, 2024 Billing Provider: RAÚL SEO MD Common Visit Codes: NOT BILLABLE RAÚL SEO MD Apr 25, 2024 11:52
[2024-04-25] MEDS: METOPROLOL TARTRATE 25 MG TAB PO ONE (14:10)
--- NOTE | 2024-04-25 14:10 | DVHPN2 ---
Progress Note Date Seen: Apr 25, 2024 Resident Creating Document: JIMMIE BRICENO RESIDENT Medical Necessity Reason Pt with a Central, PICC or Fol: No Subjective Review of Systems Patient was seen and examined at bedside. She states feeling well, denies any significant chest pain, shortness of breath, dizziness, lightheadedness. Objective vital signs Vital Sign Date Time Temp Pulse Resp B/P (MAP) Pulse Ox O2 Delivery O2 Flow Rate FiO2 04/25/24 09:44 155/98 04/25/24 09:10 97.8 89 17 96 97.8 04/25/24 07:53 Room Air* 0 21 Total Intake and Output 04/24/24 04/24/24 04/25/24 15:00 23:00 07:00 Intake Total 210 ml 300 ml Output Total 150 ml Balance 210 ml 150 ml medications Current Medications Medications Dose Ordered Sig/Vinny Route Start Time Stop Time Status Last Admin Dose Admin Losartan Potassium 50 mg DAILY PO 04/24/24 10:00 04/25/24 09:44 50 MG Atorvastatin Calcium 20 mg HS PO 04/23/24 22:00 04/24/24 21:32 20 MG Levothyroxine Sodium 50 mcg QAM@0600 PO 04/24/24 06:00 04/25/24 05:56 50 MCG Hydralazine HCl 10 mg Q6HP PRN IV 04/23/24 16:00 Acetaminophen/ Hydrocodone Bitart 1 tab Q4HP PRN PO 04/23/24 16:00 04/24/24 20:41 1 TAB Ondansetron HCl 4 mg Q4HP PRN IV 04/23/24 16:00 04/23/24 17:00 4 MG Docusate Sodium 100 mg BIDPRN PRN PO 04/23/24 16:00 Acetaminophen 650 mg Q6HP PRN PO 04/23/24 16:00 Nitroglycerin 0.4 mg Q5MINP PRN SL 04/23/24 20:00 Morphine Sulfate 2 mg Q30M PRN IV 04/23/24 20:00 Enoxaparin Sodium 70 mg Q12HR SC 04/24/24 10:00 04/25/24 09:43 70 MG Metoprolol Tartrate 25 mg BID PO 04/25/24 22:00 Examination General: Awake, alert, comfortable appearing, in no acute distress. HEENT: Head is normocephalic and atraumatic. Pupils are equal, round, and reactive to light. Extraocular muscles are intact. No nasal discharge. No facial trauma. Intraoral exam shows moist mucous membranes with no tonsillar enlargement or exudate. Neck: Supple with no cervical lymphadenopathy No meningismus. No goiter. Heart: Regular rate without murmur, rub, or gallop. Lungs: Equal breath sounds bilaterally with no wheezing, rales, or rhonchi. There is no chest wall tenderness or instability. Abdomen: No external sign of injury. Bowel sounds are present. Abdomen is soft, nontender. No rebound, no guarding, no rigidity. There are no palpable masses. There is no flank pain on exam. Extremities: Strong peripheral pulses. There is no clubbing, no cyanosis, and no edema. Skin: No rash. Neurologic: Cranial nerves II-XII intact without motor, sensory, or cerebellar deficit, no asterixis. laboratory and microbiology Laboratory Tests 04/24/24 05:54 Test 04/24/24 05:54 Range/Units Serum Glucose 113 H 74-106 mg/dL Labs and/or images reviewed: Labs reviewed by me, Image(s) reviewed by me Problem List/Assessment/Plan Problem List/Assessment/Plan Pre-syncope, rule out cardiogenic, neurogenic origin, likely peripheral vertigo Atrial fibrillation, controlled rate Severe aortic stenosis NSTEMI likely type 2 due to above Carotid artery stenosis, moderate Hypertension Hypothyroidism Hyperlipidemia Radial fracture Ulnar fracture Left frontal scalp hematoma Plan/Recommendation Patient has been scheduled for a left heart catheterization to be performed on at noon, NPO after midnight Echocardiogram revealed an ejection fraction of 50 %, normal RV function, left atrium enlargement, severe aortic stenosis, mean gradient of 42 mmHg, calcifications [id number]: 3 points HAS-BLED: 1 point Continue anticoagulation with therapeutic Lovenox, hold on day of left heart catheterization Continue antihypertensive, antilipidemic, levothyroxine. Continue losartan 50 mg p.o. q.d. Continue metoprolol 25 mg p.o. b.i.d. Counseled on lifestyle modifications, medical compliance Case was discussed with Dr. Young Plan discussed with: Patient My Orders My Orders Orders - JIMMIE BRICENO RESIDENT Procedure Category Date Status Time Metoprolol Tartrate PHA 04/25/24 In Process Tablet (Lopressor Ta 22:00 Npo Except For ROSAURA 04/26/24 In Process Medications 00:01 Npo After Midnight DIET 04/26/24 Transmitted Breakfast Obtain Consent For: ORDERS 04/25/24 Transmitted 13:23 Hold Enoxaparin Day ROSAURA 04/26/24 In Process Of Procedu 00:01 D/C Tlc ROSAURA 04/25/24 In Process 13:23 Shave Both Groins ROSAURA 04/25/24 In Process 13:23 Provide Education ROSAURA 04/25/24 In Process Materials 13:23 Cl Left Heart Cath CL 04/25/24 Logged 13:23 Obtain Consent For ROSAURA 04/25/24 In Process Anesthesia 13:23 JIMMIE BRICENO RESIDENT Apr 25, 2024 14:10
[2024-04-25] MEDS: hydrALAZINE HCL 20 MG/ML VL IV PRN (14:11)
[2024-04-25 20:00] VITALS: PULSE 74; PULSE 88; RESP 20; O2SAT 95
[2024-04-25 21:00] VITALS: BP 108/75; PULSE 74; RESP 20; TEMP 97.9; O2SAT 95
[2024-04-25] MEDS: METOPROLOL TARTRATE 25 MG TAB PO SCH (21:41)
[2024-04-26] VITALS (16 sets, daily range): BP systolic 103–176; BP diastolic 60–108; PULSE 60–101; RESP 14–23; TEMP 98–98.4; O2SAT 94–97
[2024-04-26 06:36] LABS: Basophils # (auto) 0 10 ^3/uL (0-0.2); Basophils % (auto) 0.3 % (0.0-2.0); Eosinophils # (auto) 0.1 10 ^3/uL (0-0.8); Eosinophils % (auto) 0.5 % (0.0-7.0); Hematocrit 37.9 % (41.0-53.0); Lymphocytes # (auto) 1.9 10 ^3/uL (0.4-5.4); Lymphocytes % (auto) 20.1 % (10.0-50.0); Mean Corpuscular Hemoglobin 30.5 pg (28.0-32.0); Mean Corpuscular Hgb Conc. 34.4 g/dL (32.0-36.0); Mean Corpuscular Volume 88.8 fL (80.0-100.0); Monocytes # (auto) 1.3 10 ^3/uL (0-1.3); Monocytes % (auto) 13.4 % (0.0-12.0); Neutrophils # (auto) 6.3 10 ^3/uL (1.6-8.6); Neutrophils % (auto) 65.7 % (37.0-80.0); Nucleated Red Blood Cells % 0.2 %; Platelet Count (auto) 215 10^3/uL (140-450); Red Blood Cells 4.26 10^6/uL (4.5-5.90); Red Cell Distribution Width 14.1 % (11.8-14.3); White Blood Cell 9.6 10^3/uL (4.4-10.8)
[2024-04-26 06:45] LABS: Chloride 103 mmol/L (98-107); Potassium 3.7 mmol/L (3.5-5.1); Sodium 138 mmol/L (136-145)
[2024-04-26 06:46] LABS: Anion Gap 11 (5-15); Calcium 9.7 mg/dL (8.7-10.4); Carbon Dioxide 24 mmol/L (20-31)
[2024-04-26 06:51] LABS: Glucose 89 mg/dL (74-106)
[2024-04-26 06:52] LABS: BUN/Creatinine Ratio 23.3 (10.0-20.0); Blood Urea Nitrogen 21 mg/dL (9-23); Magnesium 1.9 mg/dL (1.6-2.6)
[2024-04-26 07:04] LABS: INR 1.22 (0.9-1.15); Partial Thromboplastin Time 35.5 SEC (24.5-34.5); Prothrombin Time 12.7 sec (9.3-11.8)
--- NOTE | 2024-04-26 10:11 | DVHPN2 ---
Subjective No new complaints Scheduled for heart catheterization today Changes from previous H/P or p: Changes Eyes: No Pain, No Vision change, No Conjunctivae inflammation, No Eyelid inflammation, No Other, No Redness ENT: No Ear pain, No Ear discharge, No Nose pain, No Nose discharge, No Nose congestion, No Mouth pain, No Mouth swelling, No Throat pain, No Throat swelling, No Other Cardiovascular: No Chest Pain, No Palpitations, No Orthopnea, No Paroxysmal Noc. Dyspnea, No Edema, No Lt Headedness; Other (Syncope) Respiratory: No Cough, No Dry, No Shortness of breath, No SOB with excertion, No Wheezing, No Hemoptysis, No Pleuritic Pain, No Sputum, No Other Gastrointestinal: No Nausea, No Vomiting, No Abdominal Pain, No Diarrhea, No Constipation, No Melena, No Hematochezia, No Other Genitourinary: No Dysuria, No Frequency, No Incontinence, No Hematuria, No Retention, No Other Musculoskeletal: No other, No neck pain, No shoulder pain, No arm pain, No back pain, No hand pain, No leg pain, No foot pain Skin: No Rash, No Lesions, No Jaundice, No Bruising, No Other Objective Vitals Vital Signs Date Time Temp Pulse Resp B/P (MAP) Pulse Ox O2 Delivery O2 Flow Rate FiO2 04/26/24 09:39 136/88 04/26/24 09:38 65 04/26/24 05:00 98.4 20 96 98.4 04/25/24 20:00 Room Air* 0 21 Intake/Output Intake and Output 04/26/24 06:59 Intake Total 1138 ml Balance 1138 ml Intake Oral 1138 ml # Voids 5 General Appearance: Alert, Oriented X3, Cooperative Lungs: Clear to auscultation, Normal air movement Cardiovascular: Other (Irregularity irregular, systolic murmur at the base) Abdomen: Normal bowel sounds, Soft, No tenderness Extremities: No edema Medications Current Medications Medications Dose Ordered Sig/Vinny Route Start Time Stop Time Status Last Admin Dose Admin Losartan Potassium 50 mg DAILY PO 04/24/24 10:00 04/26/24 09:39 50 MG Atorvastatin Calcium 20 mg HS PO 04/23/24 22:00 04/25/24 21:39 20 MG Levothyroxine Sodium 50 mcg QAM@0600 PO 04/24/24 06:00 04/26/24 05:50 50 MCG Hydralazine HCl 10 mg Q6HP PRN IV 04/23/24 16:00 04/25/24 14:11 10 MG Acetaminophen/ Hydrocodone Bitart 1 tab Q4HP PRN PO 04/23/24 16:00 04/24/24 20:41 1 TAB Ondansetron HCl 4 mg Q4HP PRN IV 04/23/24 16:00 04/23/24 17:00 4 MG Docusate Sodium 100 mg BIDPRN PRN PO 04/23/24 16:00 Acetaminophen 650 mg Q6HP PRN PO 04/23/24 16:00 Nitroglycerin 0.4 mg Q5MINP PRN SL 04/23/24 20:00 Morphine Sulfate 2 mg Q30M PRN IV 04/23/24 20:00 Enoxaparin Sodium 70 mg Q12HR SC 04/24/24 10:00 04/25/24 21:42 70 MG Metoprolol Tartrate 25 mg BID PO 04/25/24 22:00 04/26/24 09:38 25 MG Laboratory Results Laboratory Tests 04/26/24 05:45 Chemistry Test 04/26/24 05:45 Calcium Level 9.7 mg/dL (8.7-10.4) Magnesium Level 1.9 mg/dL (1.6-2.6) Coagulation Test 04/26/24 05:45 Prothrombin Time 12.7 sec (9.3-11.8) H Prothrombin Time INR 1.22 (0.9-1.15) H Activated Partial Thromboplast Time 35.5 SEC (24.5-34.5) H Urinalysis Test 04/24/24 23:25 Urine Color Light-yellow (Yellow) Urine Clarity Clear (Clear) Urine pH 5.5 (5.0-9.0) Urine Specific [place] 1.024 (1.001-1.035) Urine Protein Negative (Negative) Urine Ketones Negative (Negative) Urine Blood Trace /uL (Negative) H Urine Nitrite Negative (Negative) Urine Bilirubin Negative (Negative) Urine Urobilinogen Normal mg/dL (Negative) Urine Leukocyte Esterase Negative /uL (Negative) Urine RBC 1 /hpf (0 - 3) Urine Microscopic WBC 1 /HPF (0-3) Urine Squamous Epithelial Cells Few /hpf (<5) Urine Bacteria Few /hpf (None Seen) H Urine Glucose Normal mg/dL (Normal) Assessment/Plan Assessment/Plan Presyncope Dizziness Systolic murmur Atrial fibrillation with controlled rate, new onset Bilateral carotid stenosis Hypertension Mixed hyperlipidemia Hypothyroidism Elevated troponin, NSTEMI type 2 Left distal ulnar and radial fracture Left frontal hematoma due to the fall Plan CT head was negative Carotid Doppler showed bilateral stenosis 50-69% The patient has a systolic murmur He is in atrial fibrillation Echocardiogram is pending Lovenox subcutaneously Cardiology consult Lipitor Full code Discussed with the family at the bedside Orthopedic consult was obtained, recommends outpatient follow up 04/25/2024: Echocardiogram shows severe aortic stenosis The patient has bilateral carotid stenosis Ejection fraction is 50% on the echo Cardiology recommended heart catheterization to be done tomorrow possibly Atrial fibrillation Hypertension Hypothyroidism Mixed hyperlipidemia Left arm distal radial and ulnar fracture Scalp hematoma The rest of the management will depend on the hospital course 04/26/2024: Heart catheterization today Lipitor Lovenox Losartan Metoprolol Monitor closely The rest of the management will depend on results of the heart catheterization today Plan discussed with: Patient, Spouse Date of Service: Apr 26, 2024 Billing Provider: RAÚL SEO MD Common Visit Codes: NOT BILLABLE RAÚL SEO MD Apr 26, 2024 10:11
[2024-04-26] MEDS: fentaNYL CITRATE 100 MCG/2 ML VL IV ONE (11:45)
[2024-04-26] MEDS: MIDAZOLAM HCL 2MG/2ML 2ml VIAL (1mg/ml) IV ONE (11:45)
[2024-04-26] MEDS: LIDOCAINE VISCOUS 2% 15ML UD PO ONE (12:00)
[2024-04-26] MEDS: SODIUM CHL 0.9% 0 ML ONE (12:25)
[2024-04-26] MEDS: HEPARIN SODIUM (PORCINE) 5000 UNITS/ML 1ML VIAL ONE (12:25)
[2024-04-26] MEDS: ANGIOMAX 250 MG VIAL IV ONE (12:25)
[2024-04-26] MEDS: LIDOCAINE 2%HCL (LOCAL ANESTH.) INJ 20ML MDV ONE (12:25)
[2024-04-26] MEDS: VERAPAMIL 2.5MG/ML INJ 2ML VIAL IV ONE (12:25)
[2024-04-26] MEDS: IODIXANOL 320MG/ML 100ML BTL IV ONE (13:34)
--- NOTE | 2024-04-26 13:37 | DVHPN2 ---
Progress Note Date Seen: Apr 26, 2024 Medical Necessity Reason Pt with a Central, PICC or Fol: No Subjective Patient reports: Feels better Other Systems: sp dione and cath Objective vital signs Vital Sign Date Time Temp Pulse Resp B/P (MAP) Pulse Ox O2 Delivery O2 Flow Rate FiO2 04/26/24 09:39 136/88 04/26/24 09:38 65 04/26/24 09:00 98.1 14 96 98.1 04/26/24 08:15 Room Air* 0 21 Total Intake and Output 04/25/24 04/25/24 04/26/24 15:00 23:00 07:00 Intake Total 488 ml 650 ml Balance 488 ml 650 ml medications Current Medications Medications Dose Ordered Sig/Vinny Route Start Time Stop Time Status Last Admin Dose Admin Losartan Potassium 50 mg DAILY PO 04/24/24 10:00 04/26/24 09:39 50 MG Atorvastatin Calcium 20 mg HS PO 04/23/24 22:00 04/25/24 21:39 20 MG Levothyroxine Sodium 50 mcg QAM@0600 PO 04/24/24 06:00 04/26/24 05:50 50 MCG Hydralazine HCl 10 mg Q6HP PRN IV 04/23/24 16:00 04/25/24 14:11 10 MG Acetaminophen/ Hydrocodone Bitart 1 tab Q4HP PRN PO 04/23/24 16:00 04/24/24 20:41 1 TAB Ondansetron HCl 4 mg Q4HP PRN IV 04/23/24 16:00 04/23/24 17:00 4 MG Docusate Sodium 100 mg BIDPRN PRN PO 04/23/24 16:00 Acetaminophen 650 mg Q6HP PRN PO 04/23/24 16:00 Nitroglycerin 0.4 mg Q5MINP PRN SL 04/23/24 20:00 Morphine Sulfate 2 mg Q30M PRN IV 04/23/24 20:00 Enoxaparin Sodium 70 mg Q12HR SC 04/24/24 10:00 04/25/24 21:42 70 MG Metoprolol Tartrate 25 mg BID PO 04/25/24 22:00 04/26/24 09:38 25 MG Examination: GENERAL:Abnormal, HEENT:Abnormal, LUNGS:Abnormal, CVS:Abnormal, ABDOMEN:Abnormal laboratory and microbiology Laboratory Tests 04/26/24 05:45 Test 04/26/24 05:45 Range/Units Serum Glucose 89 74-106 mg/dL Problem List/Assessment/Plan Problem List/Assessment/Plan severe afib dizziness broken hand HTN HL no severe cad pt needs to fu with outpt CT surgery and cardiolgy for [facility] group afibi--start doac, cont BB dc home when stable Plan discussed with: Patient My Orders My Orders Orders - YOUNG VALENTIN MD Procedure Category Date Status Time Cl Left Heart Cath CL 04/26/24 Taken 07:23 Date of Service: Apr 26, 2024 Billing Provider: YOUNG VALENTIN MD Common Visit Codes: NOT BILLABLE YOUNG VALENTIN MD Apr 26, 2024 13:37
--- NOTE | 2024-04-26 13:39 | DVHOP2 ---
Operative Report Operative Report CARDIAC GROUP LEADER SEMICONDUCTOR PROCESSING PROCEDURE REPORT [place], [place] Date of Service: 04/26/24 Car Manager: Young Valentin MD PROCEDURES PERFORMED: trans esophageal echocardiogram, conscious sedation <15 mins, doppler assesment complete MICHELLE, PREOPERATIVE DIAGNOSES: AFib , POSTOP DIAGNOSIS: severe DESCRIPTION OF PROCEDURE: The patient or appropriate family signed informed consent understanding the risks, benefits and alternatives of the procedure, they wished to proceed. The patient was brought to the cardiac director of cath lab in n.p.o. state. the patient was given 15 ml of oral viscous lidocaine. the patient was placed in a left lateral decubitus position with bite block in mouth. NExt conscious sedation was administered per director of cath lab protocol with _1_ mg of versed and _25 __ mcg of fentanyl. Next a MICHELLE probe was advanced to the mid esophagus with ease and multiple planar images obtained. At the completion of the procedure , probe was removed and there were no immediate complications. FINDINGS: Left Ventricle: Normal LV size and function, LVEF estimated at 60% Right Ventricle: NOrmal RV size and function Left atrium: enlarged, n LA Right atrium: mild enlarged Left atrial appendage: no thrombus noted, decreased velocity on PW monitoring Aortic valve: trileaflet valve, severe restricted motion, surface echo shows severe , mild aortic regurg Mitral Valve: structurally normal, mild to moderate mitral regurg, no MS Tricuspid Valve: mild tricuspid regurgitaiton, no TS Pulmonic Valve: strucutrally normal, no severe PIor PS Interatrial septum: negative color flow for R to L shunt Ascending aorta: no severe plaquing YOUNG VALENTIN MD Apr 26, 2024 13:39
--- NOTE | 2024-04-26 13:41 | DVHOP2 ---
Operative Report Operative Report CARDIAC DIRECTOR OF PROCUREMENT PROCEDURE REPORT [place], [place] Date of Service: 04/26/24 Blood Bank Manager: Young Valentin MD PROCEDURES PERFORMED: Coronary angiogram,, conscious sedation administration and supervision, less than 15 minutes; fluoroscopy use and interpretation. PREOPERATIVE DIAGNOSES: POSTOP DIAGNOSIS: DESCRIPTION OF PROCEDURE: The patient or appropriate family signed informed consent understanding the risks, benefits and alternatives of the procedure, they wished to proceed. The patient was brought to the cardiac director of labor relations [place] The patient was prepped in a sterile fashion. Sedation was used per cardiac cath protocol. I administered 2 mL of 2% lidocaine to the right wrist. With an antegrade front wall puncture. I cannulated the right radial artery and placed a 6-[place] slender. Next, an intra-arterial spasmolytic was administered. Next, a - 6[place] catheter and were used for coronary angiogram a At the completion of procedure, all guides and wires were removed, and there were no immediate complications. FINDINGS: RCA: Moderate vessel off the right sinus of Valsalva, there is no severe flow limiting stenosis. 30% mid rca stenosis LEFT MAIN: Moderate size left main, it bifurcates into LAD and circumflex. no severe stenosis. CIRCUMFLEX: Moderate caliber vessel coming off the left main with no flow limiting stenosis. LAD: LAD is a moderate caliber vessel coming of the left main. no severe stenosis. heavy calcification noted D2 has 50% stenosis . apical LAD has moderate plaque CONCLUSIONS: 1. severe 2. no severe cad noted PLAN: Aggressive risk factor modification and medical management for the patient. YOUNG VALENTIN MD Apr 26, 2024 13:41
[2024-04-27 01:00] VITALS: BP 118/64; PULSE 68; RESP 16; TEMP 97.5; O2SAT 96
[2024-04-27 05:00] VITALS: BP_SYST 114; BP_SYST 135; BP_DIAS 60; BP_DIAS 89; PULSE 68; PULSE 72; RESP 16; RESP 17; TEMP 97.5; TEMP 98; O2SAT 95
[2024-04-27 08:00] VITALS: PULSE 60; PULSE 61; RESP 18; O2SAT 96
[2024-04-27 09:00] VITALS: BP 105/57; PULSE 80; RESP 14; TEMP 97.8; O2SAT 95
[2024-04-27] MEDS ORDERED: METO25TA36 PO (12:31)
[2024-04-27] MEDS ORDERED: ASPI1TAB19 PO (12:32)
--- NOTE | 2024-04-27 12:34 | DVHDS2 ---
Discharge Summary Date of Admission Apr 23, 2024 at 19:57 Date of Discharge: Apr 27, 2024 Labs/Diagnostic Data: Laboratory Results Test 04/26/24 05:45 04/24/24 23:25 04/24/24 05:54 White Blood Count 9.6 10^3/uL (4.4-10.8) Red Blood Count 4.26 10^6/uL (4.5-5.90) Hemoglobin 13.0 g/dL (13.5-17.5) Hematocrit 37.9 % (41.0-53.0) Mean Corpuscular Volume 88.8 fL (80.0-100.0) Mean Corpuscular Hemoglobin 30.5 pg (28.0-32.0) Mean Corpuscular Hemoglobin Concent 34.4 g/dL (32.0-36.0) Red Cell Distribution Width 14.1 % (11.8-14.3) Platelet Count 215 10^3/uL (140-450) Mean Platelet Volume 7.7 fL (6.9-10.8) Neutrophils (%) (Auto) 65.7 % (37.0-80.0) Lymphocytes (%) (Auto) 20.1 % (10.0-50.0) Monocytes (%) (Auto) 13.4 % (0.0-12.0) Eosinophils (%) (Auto) 0.5 % (0.0-7.0) Basophils (%) (Auto) 0.3 % (0.0-2.0) Neutrophils # (Auto) 6.3 10 ^3/uL (1.6-8.6) Lymphocytes # (Auto) 1.9 10 ^3/uL (0.4-5.4) Monocytes # (Auto) 1.3 10 ^3/uL (0-1.3) Eosinophils # (Auto) 0.1 10 ^3/uL (0-0.8) Basophils # (Auto) 0 10 ^3/uL (0-0.2) Nucleated Red Blood Cells 0.2 % Prothrombin Time 12.7 sec (9.3-11.8) Prothrombin Time INR 1.22 (0.9-1.15) Activated Partial Thromboplast Time 35.5 SEC (24.5-34.5) Sodium Level 138 mmol/L (136-145) Potassium Level 3.7 mmol/L (3.5-5.1) Chloride Level 103 mmol/L (98-107) Carbon Dioxide Level 24 mmol/L (20-31) Anion Gap 11 (5-15) Blood Urea Nitrogen 21 mg/dL (9-23) Creatinine 0.90 mg/dL (0.700-1.30) Glomerular Filtration Rate Calc 88 mL/min (>90) BUN/Creatinine Ratio 23.3 (10.0-20.0) Serum Glucose 89 mg/dL (74-106) Calcium Level 9.7 mg/dL (8.7-10.4) Magnesium Level 1.9 mg/dL (1.6-2.6) Urine Color Light-yellow (Yellow) Urine Clarity Clear (Clear) Urine pH 5.5 (5.0-9.0) Urine Specific [place] 1.024 (1.001-1.035) Urine Protein Negative (Negative) Urine Ketones Negative (Negative) Urine Blood Trace /uL (Negative) Urine Nitrite Negative (Negative) Urine Bilirubin Negative (Negative) Urine Urobilinogen Normal mg/dL (Negative) Urine Leukocyte Esterase Negative /uL (Negative) Urine RBC 1 /hpf (0 - 3) Urine Microscopic WBC 1 /HPF (0-3) Urine Squamous Epithelial Cells Few /hpf (<5) Urine Bacteria Few /hpf (None Seen) Urine Glucose Normal mg/dL (Normal) Urine Opiates Screen Pos (NEGATIVE) Urine Fentanyl Screen Neg (NEGATIVE) Urine Barbiturates Screen Neg (NEGATIVE) Urine Phencyclidine Screen Neg (NEGATIVE) Urine Amphetamines Screen Neg (NEGATIVE) Urine Benzodiazepines Screen Neg (NEGATIVE) Urine Cocaine Screen Neg (NEGATIVE) Urine Cannabinoids Screen Neg (NEGATIVE) Hemoglobin A1c 5.6 % A1C (<5.7) Total Bilirubin 0.7 mg/dL (0.2-1.0) Aspartate Amino Transferase (AST) 31 U/L (13-40) Alanine Aminotransferase (ALT) 36 U/L (7-40) Alkaline Phosphatase 127 U/L (46-116) Troponin I High Sensitivity 93 ng/L (</=54) B-Type Natriuretic Peptide 323.49 pg/mL (0-100) Total Protein 6.7 g/dL (5.7-8.2) Albumin 4.2 g/dL (3.2-4.8) Triglycerides Level 88 mg/dL (< 150) Cholesterol Level 136 mg/dL (< 200) LDL Cholesterol 78 mg/dL (< 100) HDL Cholesterol 39 mg/dL (40-59) Vitamin B12 Level 839 pg/mL (211-911) Folic Acid 23.31 ng/mL (>5.38) Thyroid Stimulating Hormone (TSH) 1.97 uIU/mL (0.55-4.78) Free Thyroxine (T4) Calculated 0.95 ng/dL (0.89-1.76) Other Laboratory Tests 04/26/24 05:45 Brief Hx & Hospital Course: Final diagnoses: Presyncope Dizziness Systolic murmur Atrial fibrillation with controlled rate, new onset Bilateral carotid stenosis Hypertension Mixed hyperlipidemia Hypothyroidism Elevated troponin, NSTEMI type 2 Left distal ulnar and radial fracture Left frontal hematoma due to the fall Condition at Discharge: Stable Final Diagnosis/Problems List Presyncope Dizziness Systolic murmur Atrial fibrillation with controlled rate, new onset Bilateral carotid stenosis Hypertension Mixed hyperlipidemia Hypothyroidism Elevated troponin, NSTEMI type 2 Left distal ulnar and radial fracture Left frontal hematoma due to the fall Discharge Disposition: Home SNF Discharge Will this Physician continue t: No Discharge Instruct/Medications Diet: Cardiac 2g Na,low cholest Activity: Light activity Follow Up/Referral: PCP MUNDO Medications: Aspirin 81 mg daily Metoprolol succinate 25 mg daily Resume the home medications including losartan Discharge Statement: "Patient was advised to return to the ER or call 911 if any headaches, dizziness, shortness of breath, chest pain, abdominal pain, bleeding, fevers, or worsening of medical condition. Patient was counseled about treatment plan, medications, possible side effects, patientverbalized understanding. All questions were answered to the best of my ability. This discharge took greater then 30 minutes in planning, reviewing documentation, counseling the patient, and discussing with other team members." ASSESSMENT ASSESSMENT Assessment Presyncope Dizziness Systolic murmur Atrial fibrillation with controlled rate, new onset Bilateral carotid stenosis Hypertension Mixed hyperlipidemia Hypothyroidism Elevated troponin, NSTEMI type 2 Left distal ulnar and radial fracture Left frontal hematoma due to the fall Date of Service: Apr 27, 2024 Billing Provider: RAÚL SEO MD Common Visit Codes: NOT BILLABLE RAÚL SEO MD Apr 27, 2024 12:34
[2024-04-27 12:39] VITALS: BP 124/98; PULSE 79; RESP 14; TEMP 98.4; O2SAT 95
[2024-04-27 12:50] VITALS: BP 122/81; PULSE 69; RESP 14; TEMP 98.4; O2SAT 95
== END 2024-04-27 13:30 | disposition home or self-care (01) | DRG 604 ==
LOC: EDBD 11:31 → ER 11:31 → OVERFLOW 19:57 → TELE-EAST 04-24 19:52
PROVIDERS: ADMIT Internal Medicine Geriatric Medicine; ATTEND Internal Medicine Geriatric Medicine
PROC: B24BZZ4 Ultrasonography of Heart with Aorta, Transesophageal (ICD-10-PCS; principal; 2024-04-26)
PROC: B211YZZ Fluoroscopy of Multiple Coronary Arteries using Other Contrast (ICD-10-PCS; 2024-04-26)
DX: S00.83XA Contusion of other part of head, initial encounter (principal); I21.A1 Myocardial infarction type 2; S52.292A Other fracture of shaft of left ulna, initial encounter for closed fracture; S52.502A Unspecified fracture of the lower end of left radius, initial encounter for closed fracture; S01.81XA Laceration without foreign body of other part of head, initial encounter; H81.399 Other peripheral vertigo, unspecified ear; I48.91 Unspecified atrial fibrillation; I10 Essential (primary) hypertension; E78.2 Mixed hyperlipidemia; E03.9 Hypothyroidism, unspecified; D72.829 Elevated white blood cell count, unspecified; I65.23 Occlusion and stenosis of bilateral carotid arteries; Z90.49 Acquired absence of other specified parts of digestive tract; I34.0 Nonrheumatic mitral (valve) insufficiency; I25.10 Atherosclerotic heart disease of native coronary artery without angina pectoris; W18.39XA Other fall on same level, initial encounter; Y93.89 Activity, other specified; Y92.89 Other specified places as the place of occurrence of the external cause; Y99.8 Other external cause status
CPT/HCPCS: 12013; 36415; 70450; 71045; 72040; 73090; 73100; 80048; 80053; 80061; 80307; 81001; 82607; 82746; 83036; 83735; 83880; 84439; 84443; 84484; 85025; 85610; 85730; 90715; 93005; 93306; 93312; 93454; 93886; 96365; 96372; 96375; 99152; G0378; J2250; J2405; Q9967